=== PATIENT | male | born 1985 | race Caucasian/White ===

== ENCOUNTER → 2018-07-31 | Outpatient (CLI) | payer OTHER | END | disposition home or self-care (01) | LOC: NUCLEAR 07:30 | DX: M25.50 Pain in unspecified joint (principal) | CPT/HCPCS: 78315; 78306; A9503 ==

== ENCOUNTER 2020-03-14 10:03 | Outpatient (CLI) | payer OTHER | END 2020-03-14 10:11 | disposition home or self-care (01) | LOC: NUCLEAR 10:03 | PROVIDERS: ATTEND Internal Medicine Geriatric Medicine | DX: I11.9 Hypertensive heart disease without heart failure (principal) ==

== ENCOUNTER 2020-03-14 12:42 | Outpatient (CLI) | payer OTHER | END 2020-03-14 12:50 | disposition home or self-care (01) | LOC: RAD 12:42 | PROVIDERS: ATTEND Internal Medicine Geriatric Medicine | DX: I11.9 Hypertensive heart disease without heart failure (principal); R06.02 Shortness of breath; M47.817 Spondylosis without myelopathy or radiculopathy, lumbosacral region ==